=== PATIENT | male | born 1995 | race Caucasian/White ===

== ENCOUNTER 2017-06-15 13:49 | Emergency (ER) | payer OTHER ==
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
[~2017-06-15 13:49] MED LIST: ELIMITE60 G1 TOP; NO MEDICATIONS; VICODIN PO
== END 2017-06-15 15:38 | disposition home or self-care (01) ==
LOC: SED 13:49
DX: S09.90XA Unspecified injury of head, initial encounter (principal); S00.83XA Contusion of other part of head, initial encounter; Y04.2XXA Assault by strike against or bumped into by another person, initial encounter; Y93.9 Activity, unspecified; Y92.9 Unspecified place or not applicable; F17.200 Nicotine dependence, unspecified, uncomplicated; F31.9 Bipolar disorder, unspecified
CPT/HCPCS: 70450; 70486; 99284